=== PATIENT | female | born 2000 | race Two or more races ===

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

== ENCOUNTER 2023-08-27 08:27 | Emergency (ER) | payer OTHER ==
[2023-08-27 08:51] VITALS: BP 130/86; TEMP 98.7; BMI 21.2
[2023-08-27 09:15] LABS: HCG,QUALITATIVE URINE Negative
[2023-08-27] MEDS ORDERED: ACETAMINOPHEN INJECTION 100 ML IVPB ONE (09:46)
[2023-08-27] MEDS ORDERED: FAMOTIDINE 20 MG/50 ML IVPB 20 MG/50 ML MG IVPB ONE (09:46)
[2023-08-27] MEDS: SODIUM CHLORIDE 1,000 ML IV STA (09:55)
[2023-08-27] MEDS: FAMOTIDINE 20 MG/50 ML IVPB 20 MG/50 ML MG IVPB ONE (09:55)
[2023-08-27] MEDS: ACETAMINOPHEN 1000 MG/100 ML BAG IVPB ONE (10:02)
[2023-08-27 10:20] LABS: HEMOGLOBIN 12.2 G/dL (10.7-15.3); MCH 27.4 pg (25.7-33.7); MCHC 32.1 g/dl (32.0-36.0); MEAN CELL VOLUME 85.5 fl (80-96); MEAN PLT VOLUME 9.2 fl (7.5-11.1); PLATELET COUNT 252.1 10^3/uL (134-434); RBC 4.45 10^6/uL (3.60-5.2); RDW 16.3 % (11.6-15.6); WHITE BLOOD COUNT 7.1 10^3/uL (4.0-10.8)
[2023-08-27 10:28] LABS: ALBUMIN 4.5 g/dl (3.4-5.0); BILIRUBIN,TOTAL 0.4 mg/dl (0.2-1); CALCIUM 9.6 mg/dl (8.5-10.1); CREATININE 0.7 mg/dl (0.6-1.3); POTASSIUM 3.9 mmol/L (3.5-5.1); TOT PROT 7.1 g/dl (6.4-8.2)
[2023-08-27 10:29] LABS: PLATELET ESTIMATE ADEQUATE
[2023-08-27 10:36] VITALS: PULSE 76; RESP 15
== END 2023-08-27 11:24 | disposition home or self-care (01) ==
LOC: FER 08:27
PROC: 3E033GC Introduction of Other Therapeutic Substance into Peripheral Vein, Percutaneous Approach (ICD-10-PCS; principal; 2023-08-27)
PROC: 3E033GC Introduction of Other Therapeutic Substance into Peripheral Vein, Percutaneous Approach (ICD-10-PCS; 2023-08-27)
DX: R10.11 Right upper quadrant pain (principal)
CPT/HCPCS: 36415; 76705-TC; 80053; 81003; 81015; 83690; 84703; 85027; 87086; 96365; 96375; 99284-25; J0131